=== PATIENT | female | born 1970 | race Caucasian/White ===

== ENCOUNTER → 2017-05-05 | Outpatient (CLI) | payer OTHER | LOC: BMCIMAGING 15:31 | PROVIDERS: ATTEND Registered Nurse General Practice | DX: M17.11 Unilateral primary osteoarthritis, right knee (principal) ==

== ENCOUNTER → 2019-03-03 | Outpatient (CLI) | payer OTHER | LOC: BMCIMAGING 07:41 ==

== ENCOUNTER → 2019-03-15 | Outpatient (CLI) | payer OTHER | LOC: FIMAGING 06:49 ==